=== PATIENT | male | born 1995 | race Caucasian/White ===

== ENCOUNTER 2023-01-20 08:51 | Outpatient (REF) | payer OTHER, SELFPAY ==
[2023-01-20 09:30] LABS: Hematocrit 44.6 % (42.0-52.0); Hemoglobin 14.6 g/dl (14.0-18.0); Mean Corpuscular HGB Conc 32.7 g/dl (31.0-36.0); Mean Corpuscular Hemoglobin 26.7 pg (27.0-33.0); Mean Corpuscular Volume 81.5 fL (80.0-98.0); Mean Platelet Volume 10.6 fL (9.4-12.4); Platelet Count 246 X10*3/uL (160-400); Red Blood Count 5.47 X10*6/uL (4.60-5.80); Red Cell Distribution Width 12.7 % (11.0-16.0); White Blood Count 6.5 X10*3/uL (4.8-10.8)
[2023-01-20 10:13] LABS: Alanine Aminotransferase 14 U/L (0-40); Alkaline Phosphatase 49 U/L (39-117); Anion Gap 10 (12-20); Aspartate Amino Transferase 17 U/L (5-37); Bilirubin Total 1.4 mg/dL (0.0-1.0); Blood Urea Nitrogen 9 mg/dL (9-16); Calcium 9.3 mg/dL (8.4-10.2); Carbon Dioxide 28 mmol/L (22-29); Chloride 103 mmol/L (96-108); Estimated Glomerular Filt Rate > 60; Glucose Fasting 87 mg/dL (60-99); Potassium 3.9 mmol/L (3.3-5.1); Sodium 137 mmol/L (135-145); Total Protein 7.5 g/dL (6.5-8.0)
[2023-01-25 12:28] LABS: Testosterone, Free 124.4 pg/mL (35.0-155.0); Testosterone, Total 516 ng/dL (250-1100)
== END 2023-01-20 08:52 | disposition home or self-care (01) ==
LOC: HO.LAB 08:51
PROVIDERS: PCP Physician Assistant; Visit Provider Physician Assistant
DX: Z13.1 Encounter for screening for diabetes mellitus (principal); F64.0 Transsexualism; Z79.899 Other long term (current) drug therapy
CPT/HCPCS: 36415; 80053; 84402; 84403; 85027

== ENCOUNTER 2024-05-12 11:23 | Outpatient (AMB) | payer OTHER, SELFPAY ==
--- NOTE | 2024-05-12 11:26 | A.OFFPC_ITS ---
Vital Signs 05/12/24 11:27 Height 5 ft 4 in Weight 175 lb BMI 30.0 BP 96/50 L Blood Pressure Location Lt brachial Position Sitting Pulse 80 Pulse Source Pulse Oximeter Pulse Oximetry (%) 98 Oxygen Delivery Method Room Air Intake Visit Reasons: PE Intake Note: Patient is here today for a physical. Oil Rigger Required: No Accompanied by: Self / Same As Patient Allergies bee pollen [bee stings] Allergy (Severe, Verified 05/12/24 11:36) Anaphylaxis cefaclor [From Ceclor] Allergy (Severe, Verified 05/12/24 11:36) rash, hives, mouth and throat swelling hornet venom [hornets] Allergy (Severe, Verified 05/12/24 11:36) Anaphylaxis Sulfa (Sulfonamide Antibiotics) Allergy (Severe, Verified 05/12/24 11:36) rash, hives and mouth and throat swelling ustekinumab [From Stelara] Allergy (Mild, Verified 05/12/24 11:36) flushing, rash wasp Allergy (Severe, Uncoded 05/12/24 11:36) Anaphylaxis Medication List - Last Reconciled 05/12/24 by Christian Cid PA-C adalimumab (Humira Pen) mg subcut QWEEK epinephrine 0.3 mg IM ONCE PRN lorazepam 1 mg PO DAILY PRN testosterone cypionate 80 mg (0.4 mL) subcut Q7D 4 weeks Tobacco use date assessed: 05/12/24 Dental Screening Dental Screen Date: 05/12/24 Did you have a dental visit in the last 12 months?: Yes Did you have a dental problem in the last 6 months where you did not have access to dental care?: No Was dental information given to patient?: Patient has dentist HPI PE HPI Details Patient is a 28-year-old here today for new patient annual physical. 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 Concerns--> reports having some blurred vision with near sided objects and would like to have there eyes checked. CHITO: Uses mostly nonpharmacological methods on reducing anxiety. they do use lorazepam 1 mg on a very limited p.r.n. basis (once per month) for panic attacks. .. Inflammatory bowel disease: Continues with the use of disease modifying drug with good control over GI symptoms. Mentions the need for an annual skin exam .. Vaccine: Up-to-date with COVID and flu vaccines. Did get tetanus vaccine 2017. REPLACED BY [facility] Surgical History History of vulvectomy History of bilateral mastectomy History of ear surgery Family History (Updated 05/12/24 @ 11:42 by Christian Cid PA-C) Mother Diabetes Melanoma Depression Father IBS (irritable bowel syndrome) Melanoma Paternal Grandfather Substance use disorder Sister Liver disease Social History (Updated 05/12/24 @ 11:42 by Christian Cid PA-C) Housing: Apartment Alcohol intake: current Alcohol intake frequency: a few times a month Alcohol type: beer, wine and hard liquor Patient Tobacco Use Status: Never used Tobacco e-Cigarette/Vaping Use: Never Used Second Hand Smoke Exposure: No service: No Current occupational status: employed Current occupation: self employed- mental health therapy Current occupational exposures/hazards: No Cognitive needs: No Hearing needs: No Vision needs: No Questionnaire PHQ-9 Over the last 2 weeks, how often have you been bothered by any of the following problems? 1. Little interest or pleasure in doing things: not at all 2. Feeling down, depressed, or hopeless: several days 3. Trouble falling or staying asleep, or sleeping too much: several days 4. Feeling tired or having little energy: several days 5. Poor appetite or overeating: not at all 6. Feeling bad about yourself - or that you are a failure or have let yourself or your family down: several days 7. Trouble concentrating on things, such as reading the newspaper or watching television: not at all 8. Moving or speaking so slowly that other people could have noticed. Or the opposite - being so fidgety or restless that you have been moving around a lot more than usual: not at all 9. Thoughts that you would be better off or of hurting yourself in some way: not at all Total score: 4 Depression Screening Interpretation: Positive Depression Screening Follow-up: Existing condition Depression Screening Done: Yes 13912 - PHQ-9 Billing: Yes Source: Developed by Drs. Juan Wheatley, Ananya B.Steven Dsouza and colleagues, with an educational durga from [employer]. Thrive Questionnaire Date Thrive assessed: 05/12/24 I am a: Patient What is your living situation today?: I have a steady place to live Within the past 12 months, did the food you bought not last and you didn't have the money to get more?: Never true Within the past 12 months, did you worry whether your food would run out before you got money to buy more?: Never true Do you have trouble paying for medicines?: No Do you have trouble getting transportation to medical appointments?: No Do you have trouble paying your heating and electricity bill?: No Do you have trouble taking care of your child, family member or friend?: No Do you have trouble with day-to-day activities such as bathing, preparing meals, shopping, managing finances, etc.?: No Are you currently unemployed and looking for a job?: No Are you interested in more education?: No Please select the resources that you would like help with: None Currently or been in a relationship where the following occur: I choose not to answer THRIVE Score: 0 AUDIT C Alcohol Use Questionnaire (AUDIT-C) 1. How often do you have a drink containing alcohol?: 2-4 times a month 2. How many drinks containing alcohol do you have on a typical day when you are drinking?: 1 or 2 3. How often do you have six or more drinks on one occasion?: Never Total Score: 2 CHITO-7 AMB Questionnaire CHITO-7 Date CHITO - 7 assessed: 05/12/24 Feeling nervous, anxious, or on edge: 1 = Several days Not being able to stop or control worryin = Several days Worrying too much about different things: 0 = Not at all Trouble relaxin = Not at all Being so restless that it is hard to sit still: 0 = Not at all Becoming easily annoyed or irritable: 1 = Several days Feeling afraid as if something awful might happen: 1 = Several days Total CHITO-7 score (0-4 normal; 5-9 mild; 10-14 moderate; 15-21 severe): 4 Source: Developed by Drs. Juan Wheatley, Steven Olguin and colleagues, with an educational durga from [employer]. CHITO-7 Assessment Billing CHITO-7 Assessment Tool: CHITO-7 Assessment 08413 Review of Systems Const Denies body aches, Denies chills, Denies excessive sweating, Denies fatigue, Denies fever(s) and Denies headache(s) Eyes Denies blurry vision ENT Denies dysphagia, Denies vertigo, Denies dizziness, Denies headache(s), Denies hearing loss and Denies tinnitus Card Denies chest pain, Denies chest pain with activity, Denies syncope, Denies irregular heart rhythm and Denies dyspnea Resp Denies chest congestion, Denies cough, Denies hemoptysis, Denies dyspnea and Denies wheezing GI Denies abdominal pain, Denies melena, Denies hematochezia, Denies coffee ground emesis, Denies dysphagia, Denies diarrhea, Denies nausea and Denies vomiting Denies difficulty urinating, Denies dysuria, Denies urinary frequency, Denies urinary hesitancy and Denies urinary urgency Musc Denies arthralgias, Denies limited range of motion, Denies muscle cramps and Denies muscle weakness Skin/Breast Denies rash and Denies skin ulcer Neuro Denies Abnormal speech present, Denies confusion, Denies vertigo, Denies dizziness, Denies syncope, Denies headache(s), Denies memory loss and Denies seizure-like activity Psych Denies anxiety, Denies confusion, Denies depression, Denies memory loss, Denies panic attacks and Denies paranoia Endo Denies excessive sweating, Denies fatigue, Denies flushing, Denies polydipsia and Denies polyuria Aller/Immun Denies wheezing Physical exam (Primary Care) Vital Signs: Last Vital Signs Pulse 80 05/12/24 11:27 BP 96/50 L 05/12/24 11:27 Pulse Ox 98 05/12/24 11:27 Oxygen Delivery Method Room Air 05/12/24 11:27 BMI result Body Mass Index 30.0 Tobacco/Smoking Status: Tobacco use Status Tobacco use date assessed 05/12/24 05/12/24 11:31 Patient Tobacco Use Status Never used Tobacco 05/12/24 11:42 e-Cigarette/Vaping Use Never Used 05/12/24 11:42 PHQ-9: PHQ-9 Score PHQ-9: Total score 4 05/12/24 11:55 Depression Screening Interpretation: Positive Depression Screening Follow-up: Existing condition Thrive Assessment: Date of Thrive Assessment Date Thrive assessed 05/12/24 05/12/24 11:31 Currently or been in a relationship where the following occur: I choose not to answer Const General: cooperative, comfortable, no acute distress, alert and awake; No con fusion Orientation/consciousness: oriented to person, oriented to place, patient oriented x3 and No confusion HENMT Head: Yes normocephalic Ears: external ears normal and TM's normal bilaterally Face and sinus: No sinus tenderness Mouth: Normal oral and palatal mucosa present and tongue normal Teeth and gingiva: dentition normal and gingiva normal Throat: Yes posterior oropharynx normal, Yes tonsils normal and Yes uvula midline Eyes Conjunctivae: conjunctivae normal Sclerae: sclerae normal Pupils: Equal, round and reactive pupils present EOM: EOMs intact bilaterally Direct Ophthalmoscopy: No no photophobia Neck Neck: Yes no lymphadenopathy, No tender and Yes no JVD Thyroid: Thyroid normal Carotids: no bruits Chest Chest palpation & inspection: no tenderness Resp Effort & Inspection: normal respiratory effort, no audible wheezes, not labored and no stridor Auscultation: no crackles, no rales, no rhonchi and no wheezes Cardio Jugular venous distension: no JVD Rate: regular rate, not bradycardic and not tachycardic Rhythm: regular rhythm Bruits: no carotid bruits Peripheral pulses: Peripheral pulses 2+ throughout GI Inspection: Yes normal to inspection, No abdominal wall ecchymosis and No visible herniation Palpation (GI): Soft to palpation, nontender, no guarding, not rigid and No hepatosplenomegaly present Auscultation: normoactive bowel sounds General: Yes no CVA tenderness Back/Spine/Pelvis Back: no CVA tenderness and No back tenderness Cervical Spine: cervical ROM normal Thoracic/Lumbar Spine: thoracic and lumbar spine normal to inspection, straight leg raise negative bilaterally, No thoraco-lumbar ROM limited and No lumbar spinal tenderness Skin Lesions: no lesions Rashes: no rashes Wounds: no wounds Neuro General: oriented to person, oriented to place, patient oriented x3, CN's II-XI intact bilaterally and No confusion Cranial nerves: Yes Equal, round and reactive pupils present and Yes Normal accommodation reflex present Cognition (Neuro): normal cognition Speech: No Abnormal speech present Gait exam (Neuro): Normal gait present Motor exam (neuro): 5/5 motor strength present throughout Extrem Right upper extremity: full ROM; no cyanosis Left upper extremity: full ROM; no cyanosis Right lower extremity: no edema Left lower extremity: no edema Psych Appearance: grossly normal Mental Status: mental status grossly normal Affect: normal affect Attitude: cooperative Thought process: Normal thought process present Coding Level of Care Code Est Pt Prev Care 18-39y(16113) Diagnoses Annual physical exam Z00.00 CHITO (generalized anxiety disorder) F41.1 IBD (inflammatory bowel disease) K52.9 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 Does use lorazepam on a p.r.n. basis for high points of anxiety otherwise stable to manage. (3) IBD (inflammatory bowel disease): Code(s): K52.9 - Noninfective gastroenteritis and colitis, unspecified Category: Medical Plan: Patient continues to follow gastroenterology and continues on Humira injections which have been very helpful . Lb can not recall any flares in the inflammatory bowel disease. 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 Liver panel, CBC and testosterone levels have been stable. Orders: Orders Complete Blood Count no Diff Today K52.9 - Noninfective gastroenteritis and colitis, unspecified Comprehensive [place]. 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
[2024-05-12 11:27] VITALS: BP 96/50; PULSE 80; O2SAT 98
== END 2024-05-12 11:55 | disposition home or self-care (01) ==
PROVIDERS: PCP Physician Assistant; Visit Provider Physician Assistant
DX: Z00.00 Encounter for general adult medical examination without abnormal findings (principal); F41.1 Generalized anxiety disorder; K52.9 Noninfective gastroenteritis and colitis, unspecified; F64.0 Transsexualism; Z79.899 Other long term (current) drug therapy

== ENCOUNTER → 2024-05-12 11:23 | Outpatient (BNVA) | payer OTHER, SELFPAY | PROVIDERS: PCP Physician Assistant; Visit Provider Physician Assistant | DX: Z00.01 Encounter for general adult medical examination with abnormal findings (principal); F41.1 Generalized anxiety disorder; K52.9 Noninfective gastroenteritis and colitis, unspecified; F64.0 Transsexualism; Z79.899 Other long term (current) drug therapy | CPT/HCPCS: 96127; 99395 ==

== ENCOUNTER 2024-07-02 09:47 | Outpatient (REF) | payer OTHER, SELFPAY ==
[2024-07-02 11:09] LABS: Hematocrit 46.3 % (42.0-52.0); Hemoglobin 16.2 g/dl (14.0-18.0); Mean Corpuscular Hemoglobin 29.9 pg (27.0-33.0); Mean Corpuscular Volume 85.4 fL (80.0-98.0); Mean Platelet Volume 10.1 fL (9.4-12.4); Platelet Count 238 X10*3/uL (160-400); Red Blood Count 5.42 X10*6/uL (4.60-5.80); Red Cell Distribution Width 12.7 % (11.0-16.0); White Blood Count 7.2 X10*3/uL (4.8-10.8)
[2024-07-02 11:48] LABS: Alanine Aminotransferase 18 U/L (0-40); Albumin Level 4.1 g/dL (3.5-5.0); Anion Gap 12 (12-20); Aspartate Amino Transferase 26 U/L (5-37); Bilirubin Total 1.4 mg/dL (0.0-1.0); Blood Urea Nitrogen 9 mg/dL (9-16); Calcium 9.6 mg/dL (8.4-10.2); Carbon Dioxide 30 mmol/L (22-29); Chloride 104 mmol/L (96-108); Estimated Glomerular Filt Rate > 60; Glucose Fasting 88 mg/dL (60-99); Potassium 4.9 mmol/L (3.3-5.1); Sodium 141 mmol/L (135-145)
[2024-07-02 11:56] LABS: Alkaline Phosphatase 54 U/L (39-117)
[2024-07-09 18:42] LABS: Testosterone, Free 180.1 pg/mL (35.0-155.0); Testosterone, Total 648 ng/dL (250-1100)
== END 2024-07-02 09:48 | disposition home or self-care (01) ==
LOC: HO.LAB 09:47
PROVIDERS: PCP Physician Assistant; Visit Provider Physician Assistant
DX: F64.0 Transsexualism (principal); Z79.899 Other long term (current) drug therapy; Z13.1 Encounter for screening for diabetes mellitus
CPT/HCPCS: 36415; 80053; 84402; 84403; 85027

== ENCOUNTER 2025-05-16 10:42 | Outpatient (REF) | payer OTHER, SELFPAY ==
--- OUTSIDE RECORDS SUMMARY | 2025-05-10 07:34 | XMS_ITS | Encounter Summary ---
Author Organization [facility] Address [address] [place] [phone] Phone Care Team Providers Care Review Consultant Name Role Phone Christian Cid Primary Care Provider + Reason for Referral * MRI/CAT Scan - Closed Specialty Diagnoses / Procedures Referred By Contac t Referred To Contact Radiology Diagnoses Pain and swelling of knee, left Internal derangement of left knee Procedures MRI Knee (Left) CHG MRI LOWER EXTREM JT, W/O CONTRAST Alexander Benavidez PA-C [address] [place] [address] Dr. Magdiel [place] Phone: tel: fax: mailto:[email or web address] Referral ID Status Reason Start Date Expiration Date Visits Re quested Visits Authorized [id number] Closed 04/12/2025 06/11/2025 1 1 Reason for Visit * MRI/CAT Scan - Closed Specialty Diagnoses / Procedures Referred By Contac t Referred To Contact Radiology Diagnoses Pain and swelling of knee, left Internal derangement of left knee Procedures MRI Knee (Left) CHG MRI LOWER EXTREM JT, W/O CONTRAST Alexander Benavidez PA-C [address] [place] [address] [place] [address] Phone: tel: fax: mailto: Referral ID Status Reason Start Date Expiration Date Visits Re quested Visits Authorized [id number] Closed 04/12/2025 06/11/2025 1 1 Encounter Details Date Type Department Care Team (Late st Contact Info) Description 05/10/2025 7:34 AM EDT - 05/10/2025 11:59 PM EDT Hospital Encounter [address] [id number] Alexander Benavidez PA-C [address] [place] [address] [place] [phone] [email or web address] Discharge Disposition: Home or Self Care Social History Tobacco Use Types Packs/Day Years Used Date Smoking Tobacco: Never Smokeless Tobacco: Never Alcohol Use Standard Drinks/Week Comments Yes 0 (1 standard drink = 0.6 oz pur e alcohol) Education Answer Date Recorded Are you interested in more education? Not on thao e 12/14/2022 Are you concerned about learning? Not on file 12/14/2022 No 12/14/2022 No 12/14/2022 Digital Access Answer Date Recorded No 01/04/2023 No 01/04/2023 Reliable internet access at home? Not on file 01/04/2023 Device with a working camera? Not on file Comments No Sex and Gender Information Value Date Recorded Sex Assigned at Female 06/12/2020 2:41 PM EST Legal Sex Female 6:09 PM EST Gender Identity Genderqueer/Queer 06/12/2020 2:4 1 PM EST Sexual Orientation Pansexual 06/12/2020 2: 41 PM EST documented as of this encounter Medications at Time of Discharge adalimumab (HUMIRA) 40 mg/0.8 mL syringe kit Inject 40 mg under the skin once. albuterol (PROVENTIL HFA;VENTOLIN HFA) 90 mcg/actuation inhaler Inhale 2 puffs into the lungs. 4 cloNIDine HCl (CATAPRES) 0.1 MG tablet Take 0.1 mg by mouth 2 (two) times a day. dicyclomine (BENTYL) 10 MG capsule Take 10 mg by mouth 2 (two) times a day. EPINEPHrine (EPIPEN) 0.3 mg/0.3 mL auto-injector Inject 0.3 mL (0.3 mg total) into the muscle once as needed for anaphylaxis. 2 Device 2 6 escitalopram oxalate (LEXAPRO) 10 MG tablet Take 10 mg by mouth daily as needed. 4 testosterone (TESTOPEL) 75 mg Pllt subcutaneous implant by Implant route once. testosterone cypionate (DEPO-TESTOTERONE ) 200 mg/mL injection INJECT 80 MG (0.4 ML) SUBCUTANEOUSLY EVERY 7 DAYS FOR 4 WEEKS (VIALS ARE SINGLE USE) 5 documented as of this encounter Plan of Treatment Upcoming Encounters Date Type Department Care Team (Late st Contact Info) Description 05/23/2025 8:30 AM EDT Office Visit [facility] [address] [place] [address] [place] [id number] Lance Cisse DO [address] [place] [address] [facility], [place], [place] [phone] 05/30/2025 9:00 AM EDT Office Visit [address] [id number] Jerson Valdez, PA-C [address] [place] [address], [place], [place] [phone] Christian Baker, PT [address] [place], [place] [phone] 06/06/2025 10:30 AM EDT Office Visit [address] [id number] Jerson Valdez, PA-C [address] [place] [address], [place], [place] [phone] Christian Baker, PT [address] [place] [address] documented as of this encounter Procedures Procedure Name Priority Date/Time Associated Diagnosis Comments MRI KNEE WITHOUT CONTRAST (LEFT) Routine 05/10/2025 8:29 AM EDT Pain and swelling of knee, left Internal derangement of left knee documented in this encounter Results * MRI KNEE WITHOUT CONTRAST (LEFT) (05/10/2025 8:29 AM EDT) Anatomical Region Laterality Modality Knee Left Magnetic Resonan ce 05/12/2025 9:32 AM EDT Impressions 05/12/2025 9:38 AM EDT Minimal patellar cartilage degeneration. No meniscal tear. Narrative 05/12/2025 9:38 AM EDT MRI KNEE WITHOUT CONTRAST (LEFT) Referring clinician's provided indication for this examination in [facility]: * Meniscal tear, untreated, new symptoms TECHNIQUE: Multi-sequence, multi-planar MRI of the knee without intravenous contrast. COMPARISON: XR KNEE 3 VIEW (LEFT) FINDINGS: Medial Compartment: No meniscal tear. No cartilage defect or subchondral edema. Lateral Compartment: No meniscal tear. No cartilage defect or subchondral edema. Patellofemoral Compartment: There is chondromalacia and partial-thickness cartilage fissuring along the medial patellar facet. No subchondral edema. Tendons: Quadriceps, patellar, and popliteus tendons are intact. Ligaments: Intact cruciate ligaments. Intact collateral ligaments. Bones: No fracture, osteonecrosis, or focal lesion. Joint: No joint effusion or synovitis. No popliteal cyst. Procedure Note Sharri Rodarte MD - 05/12/2025 MRI KNEE WITHOUT CONTRAST (LEFT) Referring clinician's provided indication for this examination in [facility]: *Meniscal tear, untreated, new symptoms TECHNIQUE: Multi-sequence, multi-planar MRI of the knee withoutintravenous contrast. COMPARISON: XR KNEE 3 VIEW (LEFT) FINDINGS: Medial Compartment: No meniscal tear. No cartilage defect or subchondraledema. Lateral Compartment: No meniscal tear. No cartilage defect or subchondraledema. Patellofemoral Compartment: There is chondromalacia and partial- thicknesscartilage fissuring along the medial patellar facet. No subchondraledema. Tendons: Quadriceps, patellar, and popliteus tendons are intact. Ligaments: Intact cruciate ligaments. Intact collateral ligaments. Bones: No fracture, osteonecrosis, or focal lesion. Joint: No joint effusion or synovitis. No popliteal cyst. IMPRESSION: Minimal patellar cartilage degeneration. No meniscal tear. 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 It is not the complete legal health record.[facility]
[2025-05-16 12:26] LABS: Hematocrit 46.0 % (42.0-52.0); Hemoglobin 16.3 g/dl (14.0-18.0); Mean Corpuscular HGB Conc 35.4 g/dl (31.0-36.0); Mean Corpuscular Hemoglobin 30.4 pg (27.0-33.0); Mean Corpuscular Volume 85.8 fL (80.0-98.0); NRBC Abs Auto 0.000 X10*3/uL (0.0-0.012); NRBC Pct Auto 0.0 /100WBC (0.0-0.2); Platelet Count 269 X10*3/uL (160-400); Red Blood Count 5.36 X10*6/uL (4.60-5.80); White Blood Count 7.8 X10*3/uL (4.8-10.8)
--- OUTSIDE RECORDS SUMMARY | 2025-05-16 14:38 | XMS_ITS | Encounter Summary ---
Author Organization [facility] Address [address] [place] [phone] Phone Care Team Providers Care Pharmacy Clinical Specialist Name Role Phone Christian Cid Primary Care Provider + Encounter Details Date Type Department Care Team (Late st Contact Info) Description 04/12/2025 Procedure Pass [facility], [address] [address] Social History Tobacco Use Types Packs/Day Years [...] PM EST documented as of this encounter Plan of Treatment Upcoming Encounters Date Type Department Care Team (Late st Contact Info) Description 05/23/2025 8:30 AM EDT Office Visit [facility] [address] [place] [address] [place] [address] Lance Cisse DO 4 [facility], [place] [address] 05/30/2025 9:00 AM EDT Office Visit [facility] [address] [place] [address] Jerson Valdez PA-C 4 [facility], [place] [address] Christian Baker, PT [address] [place] [address] 06/06/2025 10:30 AM EDT Office Visit [facility] [address] [place] [address] Jerson Valdez PA-C 4 [facility], [place] [address] Christian Baker, PT [address] [place] [address] documented as of this encounter Visit Diagnoses Not on filedocumented in this encounter Care Teams Pharmacy Clinical Specialist Relationship Specialty Start Date End Date Christian Cid PA [address] [place] [address] PCP - General Physician Spanish Literature Professor 02/24/25 documented as of this encounter Additional Source Comments The information contained in this document represents components of the legal health record. It is not the complete legal health record.[facility]
--- OUTSIDE RECORDS SUMMARY | 2025-05-16 14:38 | XMS_ITS | Clinical Summary ---
Author Organization [facility] Address [address] [place] [phone] Phone Care Team Providers Care [employer] Name Role Phone Christian Cid Primary Care Provider + Allergies Active Allergy Reactions Criticality Noted Date Comments Cefaclor Hives 10/28/2013 Ustekinumab 02/23/2025 Sulfa (Sulfonamide Antibiotics) Angioedema 10/09 in 2006 Medications albuterol (PROVENTIL HFA;VENTOLIN HFA) 90 mcg/actuation inhaler Inhale 2 puffs into the lungs. 05/03/20 14 Active escitalopram oxalate (LEXAPRO) 10 MG tablet Take 10 mg by mouth daily as needed. 10/29/19 14 Active cloNIDine HCl (CATAPRES) 0.1 MG tablet Take 0.1 mg by mouth 2 (two) times a day. Active EPINEPHrine (EPIPEN) 0.3 mg/0.3 mL auto-injector Inject 0.3 mL (0.3 mg total) into the muscle once as needed for anaphylaxis. 2 Device 2 10/03/19 16 Active dicyclomine (BENTYL) 10 MG capsule Take 10 mg by mouth 2 (two) times a day. Active testosterone (TESTOPEL) 75 mg Pllt subcutaneous implant by Implant route once. Active testosterone cypionate (DEPO-TESTOTERON E) 200 mg/mL injection INJECT 80 MG (0.4 ML) SUBCUTANEOUSLY EVERY 7 DAYS FOR 4 WEEKS (VIALS ARE SINGLE USE) 01/21/20 25 Active adalimumab (HUMIRA) 40 mg/0.8 mL syringe kit Inject 40 mg under the skin once. 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 Overview (09/30/2014): Venom hypersensitivity Allergic rhinitis 11/11/2012 Overview (09/30/2014): Allergic rhinitis Dysfunction of eustachian tube 11/11/2012 Overview (09/30/2014): Dysfunction of eustachian tube Encounters Date Type Department Care Team Description 05/10/2025 7:34 AM EDT - 05/10/2025 11:59 PM EDT Hospital Encounter [address] [address] Alexander Benavidez PA-C Discharge Disposition: Home or Self Care 04/12/2025 2:00 PM EDT Office Visit [facility] [address] [place] [address] Alexander Benavidez PA-C Pain and swelling of knee, left (Primary Dx); Internal derangement of left knee 04/12/2025 Procedure Pass [address] [id number] 02/24/2025 12:36 PM EDT - 02/24/2025 11:59 PM EDT Hospital Encounter [address] [address] Jerson Valdez PA-C Discharge Disposition: Home or Self Care 02/24/2025 12:30 PM EDT Office Visit [facility] [address] [place] [address] Jerson Valdez PA-C Injury of meniscus of left knee, initial encounter (Primary Dx); Contusion of left knee, initial encounter; Pain and swelling of knee, left 02/23/2025 2:10 PM EDT - 02/23/2025 11:59 PM EDT Hospital Encounter [facility], X-Ray - [address] [place] [address] Sara Crockett NP Discharge Disposition: Home or Self Care 02/23/2025 1:30 PM EDT Office Visit [facility] at [address] [place] [address] Sara Crockett NP Injury of left knee, initial encounter (Primary Dx) from Last 3 Months Immunizations Immunization Administration Dates Next Due Influenza Nasal, Unspecified Formulation 04/13/2014 Influenza Quadrivalent Prese rvative Free IM 05/03/2015 Influenza, Unspecified Formulation 10/28(Deferred: Patient Decision - , Ordered By: [id number]) Family History Medical History Relation Comments Uncoded Family History Father Drug hernesto rgy Relation Status Comments Father Social History Tobacco Use Types Packs/Day Years [...] Orientation Pansexual 06/12/2020 2: 41 PM EST Last Filed Vital Signs Vital Sign Reading Time Taken Comments Blood Pressure 144/82 02/23/2025 4:34 PM EDT Pulse 60 02/23/2025 4:34 PM EDT Temperature 36.3 C (97.3 F) 02/23/2025 4:34 PM EDT Respiratory Rate 20 02/23/2025 4:34 PM EDT Oxygen Saturation 100% 02/23/2025 4:34 PM EDT Inhaled Oxygen Concentration - - Weight 81.6 kg (180 lb) 05/04/2025 5:37 PM EDT Height 162.6 cm (5' 4 ) 05/04/2025 5:37 PM EDT Body Mass Index 30.9 05/04/2025 5:37 PM EDT Plan of Treatment Upcoming Encounters Date Type Department Care Team (Late st Contact Info) Description 05/23/2025 8:30 AM EDT Office Visit [facility] [address] [place] [address] [place] [address] Lance Cisse DO 4 [facility] Orthoped[facility] Sports [facility], [place] [address] [email or web address] 05/30/2025 9:00 AM EDT Office Visit [facility] [address] [place] [id number] Jerson Valdez PA-C [address] [place] [address], [place] [address] [email or web address] Christian Baker, PT [address] [place], [place] [phone] [email or web address] 06/06/2025 10:30 AM EDT Office Visit [address] [address] Jerson Valdez PA-C [address] [place] [address] Sports [facility], [place] [address] [email or web address] Christian Baker, PT [address] [place], [place] [phone] [email or web address] Health Maintenance Due Date Last Done Comments Adult Td,Tdap Booster 1993 DEPRESSION SCREENING 2005 HEPATITIS C SCREENING 2011 HIV ONE-TIME SCREENING (18-65 YEARS) 2011 PAP SMEAR 04/22/2016 04/22/2013 PNEUMOCOCCAL VACCINES (0-49 years) (2 of 2 - PPSV23) 06/28/2020 05/03/2020 INFLUENZA VACCINE (#1) 2025 , 05/14/2023, 04/15/2022, Additional history exists COVID-19 VACCINE (2024- season) 2025 04/26/2024, 05/14/2023, 04/15/2022, Additional history exists SMOKING STATUS SCREENING (Once After 26 Yrs) Completed 04/12/2025 HEPATITIS A VACCINES Aged Out No long er eligible based on patient's age to complete this topic HIB VACCINES Aged Out No longer eligi ble based on patient's age to complete this topic MENINGOCOCCAL VACCINES (ACWY) Aged Out No longer eligible based on patient's age to complete this topic MENINGOCOCCAL VACCINES (B) Aged Out N o longer eligible based on patient's age to complete this topic Medical Devices Not on file Procedures Procedure Name Priority Date/Time Associated Diagnosis Comments MRI KNEE WITHOUT CONTRAST (LEFT) Routine 05/10/2025 8:29 AM EDT Pain and swelling of knee, left Internal derangement of left knee AMB REFERRAL TO [facility] Routine 04/12/2025 11:04 PM EDT Injury of meniscus of left knee, initial encounter Contusion of left knee, initial encounter Pain and swelling of knee, left XR KNEE 3 VIEW (LEFT) Routine 02/24/2025 12:43 PM EDT Pain and swelling of knee, left XR KNEE 4 OR MORE VIEWS (LEFT) Urgent/patient waiting 02/23/2025 2:32 PM EDT Injury of left knee, initial encounter PAP TEST Routine 04/22/2013 12:00 AM EDT from Last 3 Months or Most Recently Relevant to Health Maintenance Results * MRI KNEE WITHOUT CONTRAST (LEFT) (05/10/2025 8:29 AM EDT) Anatomical Region Laterality Modality Knee Left Magnetic Resonan ce 05/12/2025 9:32 AM EDT Impressions 05/12/2025 9:38 AM EDT Minimal patellar cartilage degeneration. No meniscal tear. Narrative 05/12/2025 9:38 AM EDT MRI KNEE WITHOUT CONTRAST (LEFT) Referring clinician's provided indication for this examination in [facility]: * Meniscal tear, untreated, new symptoms TECHNIQUE: [...] clinician's provided indication for this examination in [facility]: *Meniscal tear, untreated, new symptoms TECHNIQUE: Multi-sequence, [...] PA-C IMG MR EXTREMITY Final Resu lt * Ambulatory referral to [facility] Physical Therapy (04/12/2025 11:04 PM EDT) Other Jerson Valdez PA-C AMB [facility] REFERRALS Final Resul t * XR KNEE 3 VIEW (LEFT) (02/24/2025 12:43 PM EDT) Narrative SYSTEMGENERATED, DOCUMENTATION - 02/24/2025 12:43 PM EDT This image report has been auto-finalized and has not been read by a Radiologist. Interpretation has been included in the provider encounter note for this date of service. Jerson Valdez PA-C IMG XR LOWER EXTREMITY Final Result * XR KNEE 4 OR MORE VIEWS (LEFT) (02/23/2025 2:32 PM EDT) Anatomical Region Laterality Modality Knee Left Computed Radiogr aphy 02/23/2025 3:07 PM EDT Impressions 02/23/2025 3:07 PM EDT No fracture or dislocation. Narrative 02/23/2025 3:07 PM EDT XR KNEE 4 OR MORE VIEWS (LEFT) Referring clinician's provided indication for this examination in [facility]: Pain COMPARISON: None. FINDINGS: Left Knee: No fracture. Normal alignment. Normal joint spaces. No effusion. Procedure Note Mick Carrero MD - 02/23/2025 XR KNEE 4 OR MORE VIEWS (LEFT) Referring clinician's provided indication for this examination in [facility]:Pain COMPARISON: None. FINDINGS: Left Knee: No fracture. Normal alignment. Normal joint spaces. Noeffusion. IMPRESSION: No fracture or dislocation. Sara Crockett TARGETEER IMG XR LOWER EXTREMITY Fin al Result * Pap Smear (04/22/2013 12:00 AM EDT) 04/22/2013 Narrative [facility] - 04/22/2013 12:00 AM EDT Accession Number: [id number] Report Status: Final Type: Cytology Date: 04/22/2013 Ordering Provider: WILBUR ROSS Comment: FASTING: NO DATA PROVIDED COLLECTION DATE: [id number] RECEIVED DATE: SPECIMEN REPORTED DATE: Unless otherwise noted,Test Performed At: [facility] [address] [place], [address], COURTNEY ESPINOZA M.D. THINPREP PAP THINPREP PAP REPORT STATUS: NOT REPORTED CLINICAL INFORMATION: NONE GIVEN LMP: 04/13/13 PREV. PAP: NONE GIVEN PREV. BX: NONE GIVEN SOURCE: [employer]ervix STATEMENT OF ADEQUACY: Satisfactory for evaluation. Endocervical/transformation zone component absent. GENERAL CATEGORIZATION: NOT REPORTED INTERPRETATION/RESULT: Negative for intraepithelial lesion or malignancy. INFECTION: NOT REPORTED COMMENT: NOT REPORTED ALLIANCE MANAGER: MEIR TURNER(ASCP) REVIEW ALLIANCE MANAGER: NOT REPORTED PATHOLOGIST: NOT REPORTED COMMENT WE RECEIVED A THINPREP VIAL AND PERFORMED A THINPREP PAP TEST. IF THIS IS NOT WHAT YOU INTENDED, PLEASE CONTACT YOUR LOCAL PIECE HAND IMMEDIATELY SO THAT WE CAN ADJUST OUR BILLING APPROPRIATELY. YOU MAY ALSO INQUIRE ABOUT ALTERNATIVE OR ADDITIONAL TESTING. Test Performed At: [facility] [address] [address] COURTNEY ESPINOZA MD us Wilbur Ross MD CYTOLOGY ORDERABLES Final Resu lt [facility] [address] [place] [address], [facility] from Last 3 Months or Most Recently Relevant to Health Maintenance Insurance [facility] [employer] [place] [facility] [address] [place], [place] Care Teams [employer] Relationship Specialty Start Date End Date Christian Cid PA [address] [place] [id number] PCP - General Physician Identity Management Developer 02/24/25 Additional Source Comments The information contained in this document represents components of the legal health record. It is not the complete legal health record.[facility]
[2025-05-16 20:35] LABS: Alanine Aminotransferase 26 U/L (0-40); Albumin Level 4.4 g/dL (3.5-5.0); Alkaline Phosphatase 55 U/L (39-117); Anion Gap 14 (12-20); Aspartate Amino Transferase 29 U/L (5-37); Blood Urea Nitrogen 11 mg/dL (9-16); Calcium 9.4 mg/dL (8.4-10.2); Carbon Dioxide 28 mmol/L (22-29); Chloride 105 mmol/L (96-108); Estimated Glomerular Filt Rate > 60; Potassium 4.6 mmol/L (3.3-5.1); Sodium 142 mmol/L (135-145); Total Protein 7.3 g/dL (6.5-8.0)
[2025-05-21 10:33] LABS: Testosterone, Free 174.4 pg/mL (35.0-155.0)
== END 2025-05-16 10:43 | disposition home or self-care (01) ==
LOC: HO.LAB 10:42
PROVIDERS: PCP Physician Assistant; Visit Provider Physician Assistant
DX: Z00.00 Encounter for general adult medical examination without abnormal findings (principal); F41.1 Generalized anxiety disorder; F64.0 Transsexualism; K50.90 Crohn's disease, unspecified, without complications; Z79.899 Other long term (current) drug therapy
CPT/HCPCS: 36415; 80053; 84402; 84403; 85027; 96127; 99395

== ENCOUNTER 2025-05-16 10:42 | Outpatient (AMB) | payer OTHER, SELFPAY ==
--- NOTE | 2025-05-16 10:54 | A.OFFPC_ITS ---
Vital Signs 05/16/25 10:55 Height 5 ft 4 in BMI Reason not done Patient refused/unable BP 132/60 Blood Pressure Location Lt brachial Position Sitting Pulse 84 Pulse Source Pulse Oximeter Temp 97.3 F Temp Source Temporal Artery Scan Pulse Oximetry (%) 98 Oxygen Delivery Method Room Air Intake Visit Reasons: PE Intake Note: Patient is here today for a physical. Ic Designer Gate Arrays Required: No Mortgage Consultant: Not Required per policy Accompanied by: Self / Same As Patient Allergies bee pollen (bee stings) Allergy (Severe, Verified 05/16/25 11:04) Anaphylaxis cefaclor (From Ceclor) Allergy (Severe, Verified 05/16/25 11:04) rash, hives, mouth and throat swelling hornet venom (hornets) Allergy (Severe, Verified 05/16/25 11:04) Anaphylaxis Sulfa (Sulfonamide Antibiotics) Allergy (Severe, Verified 05/16/25 11:04) rash, hives and mouth and throat swelling ustekinumab (From Stelara) Allergy (Mild, Verified 05/16/25 11:04) flushing, rash wasp Allergy (Severe, Uncoded 05/16/25 11:04) Anaphylaxis Medication List - Last Reconciled 05/16/25 by Christian Cid PA-C adalimumab (Humira Pen) mg subcut QWEEK epinephrine 0.3 mg IM ONCE PRN testosterone cypionate 80 mg (0.8 mL) IM QWEEK 4 weeks Tobacco use date assessed: 05/16/25 Dental Screening Dental Screen Date: 05/16/25 Did you have a dental visit in the last 12 months?: Yes Did you have a dental problem in the last 6 months where you did not have access to dental care?: No Was dental information given to patient?: Patient has dentist HPI PE HPI Details Patient is a 29-year-old here today for a follow-up visit. 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 CHITO: Uses mostly nonpharmacological methods on reducing anxiety. Anxiety is reported stable .. Transgender (female to male) --> He has been on testosterone therapy for several years, with the current prescription being 200 mg per mL, which has recently required prior authoriza tion from insurance. The patient reports that the 100 mg dose requires more frequent injections, which is less preferable due to the viscosity of the medication. .. Inflammatory bowel disease: Continues with the use of disease modifying drug with good control over GI symptoms. .. Vaccine: Up-to-date with COVID and flu vaccines. Did get tetanus vaccine 2017. [facility] Surgical History History of vulvectomy History of bilateral mastectomy History of ear surgery Family History Mother Diabetes Melanoma Depression Father IBS (irritable bowel syndrome) Melanoma Paternal Grandfather Substance use disorder Sister Liver disease Social History Housing: Apartment Alcohol intake: current Alcohol intake frequency: a few times a month Alcohol type: beer, wine and hard liquor Patient Tobacco Use Status: Never used Tobacco e-Cigarette/Vaping Use: Never Used Second Hand Smoke Exposure: No service: No Current occupational status: employed Current occupation: self employed- mental health therapy Current occupational exposures/hazards: No Cognitive needs: No Hearing needs: No Vision needs: No Questionnaire PHQ-9 Over the last 2 weeks, how often have you been bothered by any of the following problems? 1. Little interest or pleasure in doing things: several days 2. Feeling down, depressed, or hopeless: several days 3. Trouble falling or staying asleep, or sleeping too much: not at all 4. Feeling tired or having little energy: several days 5. Poor appetite or overeating: not at all 6. Feeling bad about yourself - or that you are a failure or have let yourself or your family down: several days 7. Trouble concentrating on things, such as reading the newspaper or watching television: not at all 8. Moving or speaking so slowly that other people could have noticed. Or the opposite - being so fidgety or restless that you have been moving around a lot more than usual: not at all 9. Thoughts that you would be better off or of hurting yourself in some way: not at all Total score: 4 Depression Screening Interpretation: Positive Depression Screening Done: Yes 68037 - PHQ-9 Billing: Yes Source: Developed by Jean Carlos Mckeonet B.W. Remy, Steven Eastman and colleagues, with an educational durga from [employer] Thrive Questionnaire Date Thrive assessed: 05/09/25 I am a: Patient What is your living situation today?: I choose not to answer this question Within the past 12 months, did the food you bought not last and you didn't have the money to get more?: Never true Within the past 12 months, did you worry whether your food would run out before you got money to buy more?: Never true Do you have trouble paying for medicines?: No Do you have trouble getting transportation to medical appointments?: No Do you have trouble paying your heating and electricity bill?: I choose not to answer this question Do you have trouble taking care of your child, family member or friend?: No Do you have trouble with day-to-day activities such as bathing, preparing meals, shopping, managing finances, etc.?: No Are you currently unemployed and looking for a job?: No Are you interested in more education?: No Please select the resources that you would like help with: None Currently or been in a relationship where the following occur: No concerns reported THRIVE Score: 0 AUDIT C Alcohol Use Questionnaire (AUDIT-C) 1. How often do you have a drink containing alcohol?: Monthly or less 2. How many drinks containing alcohol do you have on a typical day when you are drinking?: 1 or 2 3. How often do you have six or more drinks on one occasion?: Never Total Score: 1 CHITO-7 AMB Questionnaire CHITO-7 Date CHITO - 7 assessed: 05/16/25 Feeling nervous, anxious, or on edge: 0 = Not at all Not being able to stop or control worryin = Not at all Worrying too much about different things: 0 = Not at all Trouble relaxin = Not at all Being so restless that it is hard to sit still: 0 = Not at all Becoming easily annoyed or irritable: 0 = Not at all Feeling afraid as if something awful might happen: 1 = Several days Total CHITO-7 score (0-4 normal; 5-9 mild; 10-14 moderate; 15-21 severe): 1 Source: Developed by Drs. Juan Wheatley, Ananya Alberto, Steven Eastman and colleagues, with an educational durga from [employer] CHITO-7 Assessment Billing CHITO-7 Assessment Tool: CHITO-7 Assessment 80043 Review of Systems Const Denies excessive sweating, Denies fatigue and Denies headache(s) Eyes Denies loss of vision ENT Denies vertigo, Denies dizziness, Denies headache(s) and Denies sore throat Card Denies chest pain, Denies leg edema and Denies lightheadedness Resp Denies cough, Denies hemoptysis and Denies wheezing GI Denies abdominal pain, Denies melena, Denies constipation, Denies diarrhea and Denies vomiting Denies dysuria, Denies urinary frequency and Denies urinary urgency Musc Denies arthralgias, Denies joint swelling, Denies numbness and Denies tingling Skin/Breast Denies rash and Denies skin ulcer Neuro Denies Abnormal speech present, Denies behavioral changes, Denies vertigo, Denies dizziness, Denies headache(s), Denies loss of vision, Denies memory loss, Denies numbness and Denies tingling Psych Denies anxiety, Denies behavioral changes, Denies depression, Denies memory loss and Denies panic attacks Endo Denies excessive sweating, Denies fatigue, Denies flushing, Denies polydipsia and Denies polyuria Stephen/Lymph Denies easy bleeding and Denies easy bruising Aller/Immun Denies wheezing Physical exam (Primary Care) Vital Signs: Last Vital Signs Temp 97.3 F 05/16/25 10:55 Pulse 84 05/16/25 10:55 BP 132/60 05/16/25 10:55 Pulse Ox 98 05/16/25 10:55 Oxygen Delivery Method Room Air 05/16/25 10:55 Tobacco/Smoking Status: Tobacco use Status Tobacco use date assessed 05/16/25 05/16/25 10:59 Patient Tobacco Use Status Never used Tobacco 05/16/25 10:59 e-Cigarette/Vaping Use Never Used 05/16/25 10:59 PHQ-9: PHQ-9 Score PHQ-9: Total score 4 05/16/25 11:17 Depression Screening Interpretation: Positive Thrive Assessment: Date of Thrive Assessment Date Thrive assessed 05/09/25 05/16/25 10:59 Currently or been in a relationship where the following occur: No concerns reported Const General: healthy appearing, no acute distress, alert and awake Nutritional Appearance: well nourished Orientation/consciousness: oriented to person, oriented to place and oriented to time HENFL Head: Yes normocephalic Ears: TM's normal bilaterally General nose exam: Normal nasal mucous membranes and turbinates present Face and sinus: No sinus tenderness Mouth: Normal oral and palatal mucosa present and tongue normal Teeth and gingiva: dentition normal and gingiva normal Throat: Yes posterior oropharynx normal, Yes tonsils normal and Yes uvula midline Eyes Conjunctivae: conjunctivae normal Sclerae: sclerae normal Pupils: Equal, round and reactive pupils present EOM: EOMs intact bilaterally Direct Ophthalmoscopy: No no photophobia Neck Neck: Yes no lymphadenopathy and Yes no JVD Thyroid: Thyroid normal Carotids: no bruits Chest Chest palpation & inspection: no tenderness Resp Effort & Inspection: normal respiratory effort and not tachypneic Auscultation: no crackles, no rales, no rhonchi and no wheezes Cardio Jugular venous distension: no JVD Rate: regular rate Rhythm: regular rhythm Heart sounds: no murmurs and normal S1 and S2 Bruits: no carotid bruits Peripheral pulses: Peripheral pulses 2+ throughout GI Inspection: Yes normal to inspection, No abdominal wall ecchymosis and No visible herniation Palpation (GI): Soft to palpation, nontender, no hepatomegaly and no splenomegaly Auscultation: normal bowel sounds General: Yes no CVA tenderness Back/Spine/Pelvis Back: no CVA tenderness and No back tenderness Cervical Spine: cervical ROM normal Thoracic/Lumbar Spine: thoracic and lumbar spine normal to inspection, straight leg raise negative bilaterally, No thoraco-lumbar ROM limited and No lumbar spinal tenderness Skin General skin exam: no rashes or lesions noted and dry skin Lesions: no lesions Rashes: no rashes Wounds: no wounds Neuro General: oriented to person, oriented to place and oriented to time Cranial nerves: Yes Equal, round and reactive pupils present Cognition (Neuro): normal cognition Speech: No Abnormal speech present Gait exam (Neuro): Normal gait present Motor exam (neuro): no tremor noted Extrem Right upper extremity: full ROM Left upper extremity: full ROM Right lower extremity: full ROM; no edema Left lower extremity: full ROM; no edema Psych Appearance: grossly normal Mental Status: mental status grossly normal Speech and movement: Normal speech and movement present Affect: normal affect Attitude: cooperative Thought process: Normal thought process present Coding Level of Care Code Est Pt Prev Care 18-39y(58722) Diagnoses Annual physical exam Z00.00 HCITO (generalized anxiety disorder) F41.1 IBD (inflammatory bowel disease) K52.9 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 (3) IBD (inflammatory bowel disease): Code(s): K52.9 - Noninfective gastroenteritis and colitis, unspecified Category: Medical Plan: Patient continues to follow gastroenterology and continues on Humira injections which have been very helpful . Lb can not recall any flares in the inflammatory bowel disease. (4) Transgender person on hormone therapy: Code(s): F64.0 - Transsexualism; Z79.899 - Other mcc (current) drug therapy Category: Medical Plan: Lb continues on IM testosterone therapy. Patient usually on the 200 mg per 1 mL IM solution though there has been some insurance discrepancy on coverage. Liver panel, CBC and testosterone levels have been stable.
[2025-05-16 10:55] VITALS: BP 132/60; PULSE 84; TEMP 36.3; O2SAT 98
--- OUTSIDE RECORDS SUMMARY | 2025-05-16 13:01 | XMS_ITS | Patient Health Record ---
Author Organization [facility] Address [address] [place] [id number] Care Team Providers Care Community Engagement Specialist Name Role Phone Rosita Calix Unavailable [phone] Clem Sampson Unavailable Unavailable Allergies Allergen (clinical drug ingredient) Drug/Non Drug Allergy documented on EMR Reaction Allergy Type Onset Date Status Substance with sulfonamide structure and antibacterial mechanism of action (substance) Sulfa medications (uncoded) Rash and throat closing Allergy Active cefaclor Cefaclor Rash and throat closing Drug Allergy Active ustekinumab Stelara Rash and difficulty breathing Drug Allergy Active Reason For Referral No Information Medications Medication SIG (Take, Route, Frequency, Duration) Notes Start Date End Date Status Fish Oil Active LORazepam prn Active Milk Thistle 2 capsules daily ; Prescribed By: N/A Active Percocet Not-Taking Testosterone 80mg weekly; Pre scribed By: PCP Active Humira 1 pen weekly; Pr escribed By: Folder Taper Operator Active cloNIDine 1 tablet daily a t bedtime; Prescribed By: PCP Active Gabapentin Active MiraLax 1/2 dose daily Activ e Social History Sex Assigned At : Social History Observation Description Sex Assigned At Unknown Section Notes: Social History as of 09/16/2021 Smoking Status: Never smoker Chew Tobacco: No Alcohol Drinker: Current drinker How much? 3-4 drinks/month Recreational Drugs: No Race: White/ Sexual Orientation: Something else Other Sexual Orientation: Asexual, Pansexual Gender Identity: Additional gender category or other Other Gender Identity: Nonbinary Have you had sex (vaginal, anal, oral) in the past 12 months? No Have you ever been diagnosed with a sexually transmitted disease? No Works as mainframe programmer for mental health therapist Social History as of 09/16/2021 Smoking Status: Never smoker Chew Tobacco: No Alcohol Drinker: Current drinker How much? 3-4 drinks/month Recreational Drugs: No Race: White/ Sexual Orientation: Something else Other Sexual Orientation: Asexual, Pansexual Gender Identity: Additional gender category or other Other Gender Identity: Nonbinary Have you had sex (vaginal, anal, oral) in the past 12 months? No Have you ever been diagnosed with a sexually transmitted disease? 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 Plan Of Treatment No Information Insurance Providers Payer Name Payer Address Payer Phone Subscriber Number Group Number Insured Name Patient Relationship to Insured Coverage Start Date Coverage End Date [facility] [address] [place] [address] [id number] CLAUS Garcia Self - patient is the insured Medical (General) History Medical History History ICD Code PTSD - Post-traumatic stress disorder CD - Crohn's disease Arthritis Anxiety/Panic Attacks Covid 19 vax, booster and recovered from infection Surgical History Surgery Date(Month/Year) Vaginectomy and clitoral burying 2021 JOE BSO - Total abdominal hy sterectomy and bilateral salpingo-oophorectomy 2018 Bilateral mastecomies 2017 Ear tubes 1994
== END 2025-05-16 11:29 | disposition home or self-care (01) ==
LOC: HO.HMCH 10:43
PROVIDERS: PCP Physician Assistant; Visit Provider Physician Assistant
DX: Z00.00 Encounter for general adult medical examination without abnormal findings (principal); F41.1 Generalized anxiety disorder; K52.9 Noninfective gastroenteritis and colitis, unspecified; F64.0 Transsexualism; Z79.899 Other long term (current) drug therapy